=== PATIENT | male | born 1950 | race Caucasian/White ===

== ENCOUNTER → 2017-07-30 | Outpatient (CLI) | payer MEDICARE ==
[~2017-07-30] MED LIST: ALLO300T2 PO; ASPI81TA28 PO; ATEN-175 PO; GLC/500 PO; GLIP10TA3 PO; LTR510 PO; SIMV10TA2 PO; TORS1TAB41 PO
[2017-07-30 10:37] LABS: HEMATOCRIT 43.1 % (42-52); MEAN CORPUSCULAR HEMOGLOBIN 30.5 pg (25-34); MEAN CORPUSCULAR HGB CONC 33.9 g/dl (32-36); MEAN PLATELET VOLUME 11.1 fL (7.4-10.4); PLATELET COUNT 255 K/uL (130-400); RED BLOOD COUNT 4.79 M/uL (4.7-6.1); WHITE BLOOD COUNT 10.13 K/uL (4.8-10.8)
[2017-07-30 10:59] LABS: ALT/SGPT 58 U/L (12-78); AST/SGOT 32 U/L (15-37); BLOOD UREA NITROGEN 22 mg/dl (7-18); BUN/CREATININE RATIO 22.6 (10-20); CALCIUM 8.9 mg/dl (8.5-10.1); CARBON DIOXIDE 25 mmol/L (21-32); CHLORIDE 104 mmol/L (98-107); CREATININE 0.98 mg/dl (0.60-1.40); GLUCOSE 163 mg/dl (70-99); POTASSIUM 4.2 mmol/L (3.5-5.1); SODIUM 139 mmol/L (136-145); URIC ACID 6.2 mg/dl (2.6-7.2)
[2017-07-30 11:01] LABS: ALB/GLOB RATIO 0.9 (0.9-2); ALKALINE PHOSPHATASE 100 U/L (45-117); CHOLESTEROL 122 mg/dl (0-200); CHOLESTEROL/HDL RATIO 2.8; HDL CHOLESTEROL 44 mg/dl; LDL CHOLESTEROL CALCULATED 54 mg/dl; TRIGLYCERIDES 118 mg/dl (0-150); VERY LOW DENSITY LIPOPROT CALC 24 mg/dl
[2017-07-30 11:43] LABS: ESTIMATED AVERAGE GLUCOSE 169 mg/dl; HA1C FLAG Normal (Normal)
== END | disposition home or self-care (01) ==
LOC: C.LABBC 08:02
PROVIDERS: ATTEND Internal Medicine
DX: Z00.00 Encounter for general adult medical examination without abnormal findings (principal); I10 Essential (primary) hypertension; M10.9 Gout, unspecified; E11.9 Type 2 diabetes mellitus without complications; E78.5 Hyperlipidemia, unspecified; Z11.59 Encounter for screening for other viral diseases; R74.8 Abnormal levels of other serum enzymes

== ENCOUNTER 2022-02-25 20:52 | Observation (INO) ==
--- NOTE | 2022-02-25 21:03 | Emergency Department Note ---
History of Present Illness General Chief complaint: Stroke/CVA Symptoms Stated complaint: STOKE SYMPTOMS Source: patient and EMS Mode of arrival: ambulatory Limitations: no limitations History of Present Illness Patient is a 71-year-old male who had a recent intraparenchymal hemorrhage and was sent to [place] on [address], comes in after around 2:00 feeling like his left hand was tingly and he noticed he dropped something he said it was only his left hand it did not involve the face or the leg on that side. He is starting to feel better. There is no trauma or injury. He denies any chest pain or shortness of breath. He was on aspirin which I stopped. At [place] he did not require any surgical intervention. No change in vision no difficulty speaking or swallowing his blood sugar was checked on route and was Home Medications Medication Instructions Recorded Confirmed Type amlodipine 5 mg-benazepril 10 mg 1 cap PO QPM #90 cap 02/28/21 02/25/22 Rx capsule torsemide 10 mg tablet 10 mg PO QPM #90 tab 08/24/21 02/25/22 Rx simvastatin 10 mg tablet 10 mg PO PM #90 tab 11/14/21 02/25/22 Rx dulaglutide 1.5 mg/0.5 mL 1.5 mg SUBCUT .weekly #6 ml 11/23/21 02/25/22 Rx subcutaneous pen injector allopurinol 300 mg tablet 300 mg PO PM 12/20/21 02/25/22 History metformin 500 mg tablet 1,000 mg PO BID 12/20/21 02/25/22 History atenolol 50 mg tablet 50 mg PO DAILY 02/25/22 02/25/22 History glipizide 5 mg tablet 10 mg PO BID 02/25/22 02/25/22 History Allergies Allergy/AdvReac Type Severity Reaction Status Date / Time No Known Allergies Allergy Verified 02/25/22 22:13 Past Med/Surg History Medical History Cardiac murmur MILD Diabetes mellitus, type 2 NIDDM Gout Hyperlipidemia Hypertension Surgical History Achilles tendon tear (~1986) RT FOOT with repair History of colonoscopy History of tooth extraction (~1973) wisdom teeth 1973 Family History Father Family history of diabetes mellitus Myocardial infarction Hyperlipidemia Hypertension Grandmother (Paternal) Family history of diabetes mellitus Mother Family hx of colon cancer Breast cancer Colorectal cancer Brother Family hx of colon cancer Grandmother (Maternal) Family hx of colon cancer Uncle Colorectal cancer Denies family history of Ovarian cancer Prostate cancer Social History Smoking Status: Never smoker Second Hand Exposure: No; Hx Alcohol Use: Yes Alcohol type: wine and hard liquor Alcohol Intake Frequency: 2-3 x/Week Alcohol Intake Frequency Comment: 3-4 drinks per week Hx Substance Use: No Preferred Language: Barbadian Communication Ability: Effective Visual Impairment: Limited Hearing Ability: Normal Cover Stripper Required: No Beliefs That Will Affect Care: None marital status: Single Current Living Situation: Significant Other current occupational status: retired current occupation: used to work in IT Feels Safe at Home: Yes Childhood Exposure to Second-Hand Smoke: Yes (father) Diet Comment: Healthy caffeine: Yes (1 cup in AM) during the past year weight has: remained stable Dental Care, Regularly: Yes Physical Activity Frequency: 3-4 Times per Week Seatbelt Use: always Sunscreen Use: Yes Assistive Devices: Glasses Review of Systems A total of 10 systems reviewed and were otherwise negative Physical Exam Vital Signs Vital Signs - 24 hr 02/25/22 20:57 02/25/22 21:06 02/25/22 21:11 Temperature 36.7 C Temperature Source Oral Pulse Rate 47 L 47 L Pulse Rate from SpO2 Sensor Respiratory Rate 17 18 Respiratory Effort / Characteristics Non-Labored Spontaneous Respiratory Depth Normal Respiratory Pattern Regular Blood Pressure 153/74 H 153/74 H Blood Pressure Mean 100 100 Blood Pressure Position Semi-fowlers Pulse Oximetry 93 93 Oxygen Delivery Method Room Air Room Air Sepsis Recent Fever Within 48 Hours No Sepsis New/Unexplained Change in Mental Status N/A Sepsis Action Taken by Nursing No Action Required 02/25/22 21:15 02/25/22 21:28 02/25/22 21:30 Temperature Temperature Source Pulse Rate 47 L 47 L 48 L Pulse Rate from SpO2 Sensor 47 L 48 L Respiratory Rate 17 18 15 Respiratory Effort / Characteristics Respiratory Depth Respiratory Pattern Blood Pressure 144/82 H 149/74 H Blood Pressure Mean 102 99 Blood Pressure Position Pulse Oximetry 96 93 Oxygen Delivery Method Sepsis Recent Fever Within 48 Hours Sepsis New/Unexplained Change in Mental Status Sepsis Action Taken by Nursing 02/25/22 21:45 02/25/22 22:01 02/25/22 22:15 Temperature Temperature Source Pulse Rate 46 L 49 L 46 L Pulse Rate from SpO2 Sensor 47 L 46 L 46 L Respiratory Rate 16 20 17 Respiratory Effort / Characteristics Respiratory Depth Respiratory Pattern Blood Pressure 142/88 H 148/84 H 143/76 H Blood Pressure Mean 106 105 98 Blood Pressure Position Pulse Oximetry 92 94 95 Oxygen Delivery Method Sepsis Recent Fever Within 48 Hours Sepsis New/Unexplained Change in Mental Status Sepsis Action Taken by Nursing General: Well developed well nourished older male who appears alert on x3 and in no acute distress, breathing comfortably on room air. Normal speech HEENT: Normal cephalic atraumatic. Pupils are equal round and reactive to light. Extraocular movements are intact. Oropharynx is pink with moist mucous membranes. No swelling of the mouth lips or tongue. Neck: Supple with a midline trachea. No meningeal signs or stiffness, no JVD or bruits. No Stridor. Chest: Clear to auscultation bilaterally. No wheezes or rhonchi. No increased work of breathing. Heart: Regular rate and rhythm without murmurs or gallops. Abdomen: Soft nontender, nondistended without rebound guarding or rigidity. Extremities: No cyanosis clubbing or edema. No calf tenderness or assymetry Spine/Back. Non tender to palpation. No CVA tenderness Skin: Good turgor without rashes. Neurologic exam: Cranial nerves two through 12 are intact. Motor and sensation are intact and symmetrical throughout. He has some minimal weakness on his left hand compared to the right. Medical Decision Making Differential Diagnosis Intracranial hemorrhage, electrolyte or metabolic abnormality, CVA, vascular disease, infection, trauma Medical Records Attestation: I reviewed the patient's medical records. Home Medications Current Medication List: was personally reviewed by me Laboratory Data Attestation: I reviewed the patient's lab results. Result diagrams: 02/25/22 21:14 02/25/22 21:14 Lab Results 02/25/22 02/25/22 02/25/22 Range/Units 21:11 21:14 21:14 WBC 8.27 (4.8-10.8) K/uL RBC 4.20 L (4.7-6.1) M/uL Hgb 13.1 L (14.0-18.0) g/dL Hct 37.9 L (42-52) % MCV 90.2 (80-100) fL MCH 31.2 (25-34) pg MCHC 34.6 (32-36) g/dL RDW Std Deviation 44.7 (36.4-46.3) fL RDW Coeff of Jono 13.6 (11.5-14.5) % Plt Count 277 (130-400) K/uL MPV 10.9 H (7.4-10.4) fL Immature Gran % (Auto) 0.2 % Neut % (Auto) 53.1 % Lymph % (Auto) 30.7 % [place] % (Auto) 11.0 % Eos % (Auto) 4.4 % Baso % (Auto) 0.6 % Neut # (Auto) 4.39 (1.4-6.5) K/uL Lymph # (Auto) 2.54 (1.2-3.4) K/uL [place] # (Auto) 0.91 H (0.11-0.59) K/uL Eos # (Auto) 0.36 (0-0.5) K/uL Baso # (Auto) 0.05 (0-0.2) K/uL Immature Gran # (Auto) 0.02 (0.00-0.02) K/uL PT 10.3 (9.0-12.0) Seconds INR 1.0 (0.9-1.1) APTT 29.9 (21.0-31.0) Seconds PTT Ratio 1.1 Sodium (136-145) mmol/L Potassium (3.5-5.1) mmol/L Chloride (98-107) mmol/L Carbon Dioxide (21-32) mmol/L Anion Gap (3-11) BUN (6-23) mg/dl Creatinine (0.6-1.4) mg/dl Est Cr Clr Drug Dosing ml/min Est GFR ( Amer) ml/min Est GFR (Non-Af Amer) ml/min BUN/Creatinine Ratio (10-20) Glucose (70-99(Fasting)) mg/dl POC Glucose 178 H (70-99) mg/dl Calcium (8.5-10.1) mg/dl Magnesium (1.7-2.4) mg/dl Total Bilirubin (0.2-1.0) mg/dl AST (13-39) U/L ALT (7-52) U/L Alkaline Phosphatase (34-104) U/L Troponin I High Sens (0-20) pg/ml Total Protein (6.0-8.3) gm/dl Albumin (3.4-5.0) gm/dl Globulin (2.5-4.0) gm/dl Albumin/Globulin Ratio (0.9-2) SARS-CoV-2, RNA, NAAT (NEGATIVE) 02/25/22 02/25/22 Range/Units 21:14 21:58 WBC (4.8-10.8) K/uL RBC (4.7-6.1) M/uL Hgb (14.0-18.0) g/dL Hct (42-52) % MCV (80-100) fL MCH (25-34) pg MCHC (32-36) g/dL RDW Std Deviation (36.4-46.3) fL RDW Coeff of Jono (11.5-14.5) % Plt Count (130-400) K/uL MPV (7.4-10.4) fL Immature Gran % (Auto) % Neut % (Auto) % Lymph % (Auto) % [place] % (Auto) % Eos % (Auto) % Baso % (Auto) % Neut # (Auto) (1.4-6.5) K/uL Lymph # (Auto) (1.2-3.4) K/uL [place] # (Auto) (0.11-0.59) K/uL Eos # (Auto) (0-0.5) K/uL Baso # (Auto) (0-0.2) K/uL Immature Gran # (Auto) (0.00-0.02) K/uL PT (9.0-12.0) Seconds INR (0.9-1.1) APTT (21.0-31.0) Seconds PTT Ratio Sodium 137 (136-145) mmol/L Potassium 3.7 (3.5-5.1) mmol/L Chloride 103 (98-107) mmol/L Carbon Dioxide 25 (21-32) mmol/L Anion Gap 9 (3-11) BUN 23 (6-23) mg/dl Creatinine 1.20 (0.6-1.4) mg/dl Est Cr Clr Drug Dosing 55.8 ml/min Est GFR ( Amer) 70.1 ml/min Est GFR (Non-Af Amer) 60.5 ml/min BUN/Creatinine Ratio 19.2 (10-20) Glucose 178 H (70-99(Fasting)) mg/dl POC Glucose (70-99) mg/dl Calcium 9.2 (8.5-10.1) mg/dl Magnesium 1.8 (1.7-2.4) mg/dl Total Bilirubin 0.4 (0.2-1.0) mg/dl AST 15 (13-39) U/L ALT 19 (7-52) U/L Alkaline Phosphatase 75 (34-104) U/L Troponin I High Sens 6.1 (0-20) pg/ml Total Protein 6.8 (6.0-8.3) gm/dl Albumin 3.9 (3.4-5.0) gm/dl Globulin 2.9 (2.5-4.0) gm/dl Albumin/Globulin Ratio 1.3 (0.9-2) SARS-CoV-2, RNA, NAAT NEGATIVE (NEGATIVE) Imaging Data Attestation: I personally reviewed and interpreted this imaging study as follow s: My Impression: CT HeadI do not see any acute hemorrhage or mass effect Chest x-rayno acute infiltrate, failure, pneumothorax seen Radiologist's Impression: Head CT 02/25/22 20:57 CT head/brain wo con CLINICAL HISTORY: cva symptoms Technique: Contiguous axial CT images of the head were acquired from the base of the skull to the vertex without intravenous contrast administration. Images were viewed in brain, subdural and bone windows. Automated dose lowering techniques and/or adjustment according to patient size were utilized for this exam. Comparison: Comparison is made to CT head 02/14/2022 Findings: Areas of decreased attenuation are present in the periventricular and subcortical white matter bilaterally consistent with small vessel ischemic disease. Generalized cerebral atrophy with commensurate enlargement of the ventricles, sulci, and cisterns is also present. There is no acute intracranial hemorrhage or evidence of acute territorial infarction. No shift of the midline structures, mass effect, or extra-axial abnormalities are shown. Atherosclerotic calcifications are present in the intracranial segments of the internal carotid arteries. Previously noted hemorrhagic infarct demonstrates expected evolutionary changes with a focus of encephalomalacia. No new hemorrhage is seen. No evidence of new infarct. Imaged portions of the paranasal sinuses and mastoid air cells are clear. The orbits appear normal. There are no acute fractures of the calvaria or scalp swelling. Impression: No evidence of new hemorrhage or infarct. Expected evolutionary appearance of previous hemorrhage. ACT 112: Negative or not required by law. Electronically signed by: Attila Hu M.D. 02/25/2022 9:19 PM Chest X-Ray 02/25/22 20:58 XR chest 1V portable CLINICAL HISTORY: Stroke Like Symptoms TECHNIQUE: Single frontal radiograph of the chest was obtained. Comparison: None available at the time of this dictation. FINDINGS: No lines and tubes are seen. The cardiomediastinal silhouette is normal. Elevation of the right hemidiaphragm is seen. The lungs are clear. No evidence of pleural effusion or pneumothorax. IMPRESSION: No acute chest disease. ACT 112: Negative or not required by law. Electronically signed by: Attila Hu M.D. 02/25/2022 9:38 PM ECG Data Attestation: I personally reviewed and interpreted this ECG as follows: Indication: + weakness Rate (beats per minute): 46 Rhythm: + sinus bradycardia ECG Intervals/blocks: + Normal QRS, + Normal QT and + Normal NC ECG [place]: + Normal ECG ST segments: + Normal ST segments ECG Findings: no PACs or no PVCs Comparison ECG Date: from (02/14/22) Change: no significant change MDM Narrative This patient comes in as described above he had symptoms of left arm weakness with start around 2:00. he feels like is getting a little better he is mildly weak in the left hand/arm only he had a recent intracranial hemorrhage that was documented on 02/14/2022 I looked at the CAT scan report. Given this he is not going to be a thrombolytic candidate also based on the presentation time. The biggest concern I think is recurrence of hemorrhage and when I saw him we immediately took him to get a CAT scan. CAT scan does not show any acute hemorrhage or acute event this was read by the radiologist as well. EKG shows baseline sinus bradycardia. He has no signal electrolyte or metabolic abnormalities. His blood pressure has been adequately controlled here as well and does not seem to be acute factor. He seems to be doing well but I am concerned that he may have had another stroke or some ischemia extension. At this point there is no evident evidence of acute hemorrhage. This could also been seizure related. I do think he needs to be admitted/observed. Dr. Alaniz's team did see the patient in ER. Dr. Alaniz asked that I talk to the [place] neurologist as we may not have neurology coverage this weekend. I did talk to Dr. Siddiqui and he recommended getting an MRI and not giving him aspirin at present but if the MRI shows some new ischemia or extension and no acute hemorrhage he feels that a low-dose aspirin could be given. He also recommended to ensure that the patient is on Keppra 500 mg twice daily for seizure prophylaxis. Looking back through the chart it looks like he was on Keppra at one-point. I did relay the these recommendations to both the resident and Dr. Alaniz. The patient will be admitted for further neurologic work- up and monitoring. Continuous cardiac monitoring: Order was placed in EMR for continuous color television console monitor. Upon my interpretation patient with no to be in sinus bradycardia with a rate of 50 Impression & Plan Acute CVA (cerebrovascular accident), Left arm weakness, History of intracranial hemorrhage, Type 2 diabetes mellitus Discharge Plan Visit Data Chief Complaint: Stroke/CVA Symptoms Stated Complaint: STOKE SYMPTOMS ED Provider: Desmond Richards Discharge Problem: Acute CVA (cerebrovascular accident), Left arm weakness, History of intracranial hemorrhage, Type 2 diabetes mellitus Forms Stand Alone Forms: My [facility] [employer] Prescriptions Prescriptions: No Action amlodipine-benazepril 5-10 mg capsule 1 cap PO QPM Qty: 90 RF: 3 torsemide 10 mg tablet 10 mg PO QPM Qty: 90 RF: 3 simvastatin 10 mg tablet 10 mg PO PM Qty: 90 RF: 3 dulaglutide 1.5 mg/0.5 mL pen injector 1.5 mg subcut .weekly Qty: 6 RF: 3 metformin 500 mg tablet 1,000 mg PO BID RF: 0 allopurinol 300 mg tablet 300 mg PO PM RF: 0 atenolol 50 mg Tablet 50 mg PO DAILY RF: 0 glipizide 5 mg Tablet 10 mg PO BID RF: 0 Referrals Referrals: Hiren Jaeger MD [Primary Care Provider] - Discharge Problem: Type 2 diabetes mellitus Qualifiers: Diabetes mellitus terminal block assembler insulin use: without terminal block assembler use Diabetes mellitus complication status: without complication Qualified Code(s): E11.9 - Type 2 diabetes mellitus without complications
--- NOTE | 2022-02-25 21:22 | CT Scan Report ---
CT head/brain wo con CLINICAL HISTORY: cva symptoms Technique: Contiguous axial CT images of the head were acquired from the base of the skull to the delilah manfred without intravenous contrast administration. Images were viewed in brain, subdural and bone [facility]. Automated dose lowering techniques and/or adjustment according to patient size were utilized for this exam. Comparison: Comparison is made to CT head 02/14/2022 Findings: Areas of decreased attenuation are present in the periventricular and subcortical white matter bilate rally consistent with small vessel ischemic disease. Generalized cerebral atrophy with commensurate e nlargement of the ventricles, sulci, and cisterns is also present. There is no acute intracranial hem orrhage or evidence of acute territorial infarction. No shift of the midline structures, mass effect, or extra-axial abnormalities are shown. Atherosclerotic calcifications are present in the intracran ial segments of the internal carotid arteries. Previously noted hemorrhagic infarct demonstrates expe cted evolutionary changes with a focus of encephalomalacia. No new hemorrhage is seen. No evidence of new infarct. Imaged portions of the paranasal sinuses and mastoid air cells are clear. The orbits appear normal. There are no acute fractures of the calvaria or scalp swelling. Impression: No evidence of new hemorrhage or infarct. Expected evolutionary appearance of previous hemorrhage. ACT 112: Negative or not required by law. Electronically signed by: Attila Hu M.D. 02/25/2022 9:19 PM
[2022-02-25 21:27] LABS: Basophils # (auto) 0.05 K/uL (0-0.2); Basophils % (auto) 0.6 %; Eosinophils # (auto) 0.36 K/uL (0-0.5); Eosinophils % (auto) 4.4 %; Hematocrit (blood only) 37.9 % (42-52); Hemoglobin 13.1 g/dL (14.0-18.0); Immature Granulocytes # (auto) 0.02 K/uL (0.00-0.02); Immature Granulocytes % (auto) 0.2 %; Lymphocytes # (auto) 2.54 K/uL (1.2-3.4); Lymphocytes % (auto) 30.7 %; Mean Corpuscular Hemoglobin 31.2 pg (25-34); Mean Corpuscular Hgb Conc 34.6 g/dL (32-36); Mean Corpuscular Volume 90.2 fL (80-100); Mean Platelet Volume 10.9 fL (7.4-10.4); Monocytes # (auto) 0.91 K/uL (0.11-0.59); Neutrophils # (auto) 4.39 K/uL (1.4-6.5); Neutrophils % (auto) 53.1 %; Platelet Count 277 K/uL (130-400); RDW Coefficient of Variation 13.6 % (11.5-14.5); RDW Standard Deviation 44.7 fL (36.4-46.3); White Blood Count 8.27 K/uL (4.8-10.8)
--- NOTE | 2022-02-25 21:39 | XRay Report ---
XR chest 1V portable CLINICAL HISTORY: Stroke Like Symptoms TECHNIQUE: Single frontal radiograph of the chest was obtained. Comparison: None available at the time of this dictation. FINDINGS: No lines and tubes are seen. The cardiomediastinal silhouette is normal. Elevation of the right hemid iaphragm is seen. The lungs are clear. No evidence of pleural effusion or pneumothorax. IMPRESSION: No acute chest disease. ACT 112: Negative or not required by law. Electronically signed by: Attila Hu M.D. 02/25/2022 9:38 PM
[2022-02-25 21:42] LABS: Albumin Globulin Ratio 1.3 (0.9-2); Albumin Level 3.9 gm/dl (3.4-5.0); BUN Creatinine Ratio 19.2 (10-20); Bilirubin,Total 0.4 mg/dl (0.2-1.0); Calcium 9.2 mg/dl (8.5-10.1); Creatinine Clr Calc Pharmacy 55.8 ml/min; Est GFR (African American) 70.1 ml/min; Est GFR (Non-African American) 60.5 ml/min; Globulin 2.9 gm/dl (2.5-4.0); Magnesium 1.8 mg/dl (1.7-2.4); Partial Thromboplastin Ratio 1.1; Partial Thromboplastin Time 29.9 Seconds (21.0-31.0); Potassium 3.7 mmol/L (3.5-5.1); Prothrombin Time 10.3 Seconds (9.0-12.0); Total Protein 6.8 gm/dl (6.0-8.3)
[2022-02-25 21:49] LABS: Troponin I High Sensitivity 6.1 pg/ml (0-20)
--- NOTE | 2022-02-25 22:34 | History & Physical Report ---
Date of Service February 25, 2022 Attending addendum: I have physically seen this patient, have supervised the medical residents activities, and agree with the H&P unless as otherwise noted. Assessment and Plan: Left arm weakness/numbness/history of hemorrhagic CVA on 02/14/2022- Recent right temporal lobe/thalamus hemorrhagic CVA with expected evolution process noted on CT head today Order MRI brain to assess for possible new CVA due to new symptoms NPO Stroke without tPA order set Keppra 5 mg p.o. twice daily Will increase simvastatin from 10 mg to high-dose 40 mg Temporarily holding aspirin, per recommendations of [facility] stroke neurology, until MRI completed verified no other hemorrhage Diabetes mellitus- Hold Trulicity, glipizide and metformin Place on Accu-Cheks before meals and at bedtime with NovoLog coverage per scale Hypertension/permissive hypertension- Atenolol 50 mg daily and amlodipine/benazepril 5/10 1 daily. Hold was permissive hypertension guidelines Remaining orders and notations as noted Assessment & Plan (1) Left arm weakness: Plan: Dario Moses is a 71-year-old male with past medical history of DM 2, hyperlipidemia, hypertension, intraparenchymal hemorrhage on 02/14/2022 who presented due to new onset left hand weakness/numbness. Left hand weakness/numbness in the setting of recent right temporal intraparenchymal bleed CT head today showing No evidence of new hemorrhage or infarct. Expected evolutionary appearance of previous hemorrhage. MRI brain ordered N.p.o. until he clears dysphagia screening Neurochecks every 4 hours ED provider spoke with [facility] see note for detail As per [facility] Wilmer, Keppra 500 mg twice daily Hold aspirin Admit for observation to med telemetry Diabetes Hold home regimen SSI when not n.p.o. Hypertension Continue home amlodipinebenazepril, atenolol, torsemide Hyperlipidemia Continue home simvastatin .DVT prophylaxis: Holding chemoprophylaxis in the setting of recent intraparenchymal bleed Diet: N.p.o. until cleared dysphagia screen Dispo: Observation to med telemetry CODE STATUS: Full (2) History of intracranial hemorrhage: (3) Type 2 diabetes mellitus: (4) Hypertension: (5) Hyperlipidemia: History of Present Illness Primary Care Provider: Hiren Jaeger MD Dario Moses is a 71-year-old male with past medical history of DM 2, hyperlipidemia, hypertension, intraparenchymal hemorrhage on 02/14/2022 who presented due to new onset left hand weakness/numbness. Patient was seen in our ED on 02/14 and found to have a right temporal lobe hemorrhagic focus on CT image of the head. He was transferred to [facility] where he was under the care of neurosurgery. There was no indication for surgical intervention. MRI showed no underlying mass. He was discharged on a 7-day course of Keppra for seizure prophylaxis. He was discharged on amlodipine, lisinopril, and labetalol on discharge. Discharge summary did show aspirin under discharge medications, but hospital course i ndicating that aspirin should be held until follow-up. Today, patient presents with new onset left hand tingling and numbness. He also states that he had dropped some things that he was holding in his left hand. He denies any dizziness, vision changes, difficulty speaking, weakness of other extremities, nausea, vomiting, chest pain, palpitations, shortness of breath, abdominal pain, fever, chills. CT head today showing No evidence of new hemorrhage or infarct. Expected evolutionary appearance of previous hemorrhage. ED provider discussed case with Dr. Siddiqui of [facility], who recommended MRI, holding aspirin until acute hemorrhage/extension of previous hemorrhage ruled out, also recommended Keppra 500 mg twice daily for seizure prophylaxis. Allergies Allergy/AdvReac Type Severity Reaction Status Date / Time No Known Allergies Allergy Verified 02/25/22 22:13 Home Medications Medication Instructions Recorded Confirmed Type amlodipine 5 mg-benazepril 10 mg 1 cap PO QPM #90 cap 02/28/21 02/25/22 Rx capsule torsemide 10 mg tablet 10 mg PO QPM #90 tab 08/24/21 02/25/22 Rx simvastatin 10 mg tablet 10 mg PO PM #90 tab 11/14/21 02/25/22 Rx dulaglutide 1.5 mg/0.5 mL 1.5 mg SUBCUT .weekly #6 ml 11/23/21 02/25/22 Rx subcutaneous pen injector allopurinol 300 mg tablet 300 mg PO PM 12/20/21 02/25/22 History metformin 500 mg tablet 1,000 mg PO BID 12/20/21 02/25/22 History atenolol 50 mg tablet 50 mg PO DAILY 02/25/22 02/25/22 History glipizide 5 mg tablet 10 mg PO BID 02/25/22 02/25/22 History Past Med/Surg History Medical History Cardiac murmur MILD Diabetes mellitus, type 2 NIDDM Gout Hyperlipidemia Hypertension Surgical History Achilles tendon tear (~1986) RT FOOT with repair History of colonoscopy History of tooth extraction (~1973) wisdom teeth 1973 Family History Father Family history of diabetes mellitus Myocardial infarction Hyperlipidemia Hypertension Grandmother (Paternal) Family history of diabetes mellitus Mother Family hx of colon cancer Breast cancer Colorectal cancer Brother Family hx of colon cancer Grandmother (Maternal) Family hx of colon cancer Uncle Colorectal cancer Denies family history of Ovarian cancer Prostate cancer Social History Smoking Status: Never smoker Second Hand Exposure: No; Do You Dip or Chew Tobacco: No; Hx Alcohol Use: Yes Alcohol type: beer, wine and hard liquor Alcohol Intake Frequency: 2-3 x/Week Alcohol Intake Frequency Comment: 3-4 drinks per week Hx Substance Use: No Preferred Language: Croatian Communication Ability: Effective Visual Impairment: Limited Hearing Ability: Normal Automobile Brakes Bonder Required: No Beliefs That Will Affect Care: None marital status: Single Current Living Situation: Alone current occupational status: retired current occupation: used to work in IT Feels Safe at Home: Yes Safety Concerns: Feels Safe At This Time Childhood Exposure to Second-Hand Smoke: Yes (father) Diet Comment: Healthy caffeine: Yes (1 cup in AM) during the past year weight has: remained stable Dental Care, Regularly: Yes Physical Activity Frequency: 3-4 Times per Week Seatbelt Use: always Sunscreen Use: Yes Assistive Devices: None Review of Systems Review of Systems: All systems reviewed & are unremarkable except as noted in HPI & below Physical Exam Physical Exam: GENERAL: A&Ox3. NAD. HEENT: PERRL, EOMI. Moist mucous membranes. NECK: No JVD. No lymphadenopathy. CHEST/LUNGS: CTAB A/P. No crackles, wheezes, rales, rhonchi. HEART: RRR. No m/g/r. No carotid bruits. ABDOMEN: NT/ND, soft. BS+ x4 EXTREMITIES: No cyanosis, no clubbing, no edema SKIN: Warm and dry. No rashes or lesions. PSYCHIATRIC: Euthymic affect, no SI, no pressured speech, no hallucinations NEUROLOGIC: No FND. CN II-XII grossly intact. Slight left-handed weakness, reported diminished sensation to light touch as well. Results & Data Results & Data ([facility]) Vital Signs (Past 12 Hours) Vital Signs Temp Pulse Resp BP Pulse Ox 02/25/22 22:15 46 L 17 143/76 H 95 02/25/22 22:01 49 L 20 148/84 H 94 02/25/22 21:45 46 L 16 142/88 H 92 02/25/22 21:30 48 L 15 149/74 H 93 02/25/22 21:28 47 L 18 144/82 H 96 02/25/22 21:15 47 L 17 02/25/22 21:11 36.7 C 47 L 18 153/74 H 93 02/25/22 21:06 47 L 17 153/74 H 02/25/22 20:57 93 Resident Activity Tracking Resident Involvement: Resident Care Provided Care Provided: Adult Hospital Medicine (1) Type 2 diabetes mellitus Diabetes mellitus complication status: without complication 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
[2022-02-25] MEDS ORDERED: ACETAMINOPHEN 325 MG TAB PO STA (23:24)
[2022-02-26] MEDS ORDERED: ONDANSETRON INJ 2 MG/ML 2 ML VIAL IV PRN (02:41)
[2022-02-26] MEDS ORDERED: ACETAMINOPHEN 325 MG TAB PO STA (02:41)
[2022-02-26] MEDS ORDERED: PHARMACIST DISCHARGE MED REC CONSULT PRN (02:41)
[2022-02-26 06:14] LABS: Hematocrit (blood only) 39.5 % (42-52); Hemoglobin 13.3 g/dL (14.0-18.0); Mean Corpuscular Hgb Conc 33.7 g/dL (32-36); Mean Corpuscular Volume 89.2 fL (80-100); Mean Platelet Volume 11.1 fL (7.4-10.4); Platelet Count 277 K/uL (130-400); RDW Coefficient of Variation 13.7 % (11.5-14.5); RDW Standard Deviation 44.7 fL (36.4-46.3); Red Blood Count 4.43 M/uL (4.7-6.1); White Blood Count 8.42 K/uL (4.8-10.8)
[2022-02-26 06:29] LABS: BUN Creatinine Ratio 20.2 (10-20); Calcium 9.4 mg/dl (8.5-10.1); Chol HDL Ratio 2.8 (0-5); Creatinine Clr Calc Pharmacy 61.8 ml/min; Est GFR (African American) 88.4 ml/min; Est GFR (Non-African American) 76.3 ml/min; Potassium 3.8 mmol/L (3.5-5.1)
[2022-02-26 06:44] LABS: Basophils # (auto) 0.07 K/uL (0-0.2); Basophils % (auto) 0.8 %; Eosinophils # (auto) 0.45 K/uL (0-0.5); Eosinophils % (auto) 5.3 %; Immature Granulocytes # (auto) 0.02 K/uL (0.00-0.02); Immature Granulocytes % (auto) 0.2 %; Lymphocytes % (auto) 39.2 %; Monocytes # (auto) 0.91 K/uL (0.11-0.59); Monocytes % (auto) 10.8 %; Neutrophils # (auto) 3.67 K/uL (1.4-6.5); Neutrophils % (auto) 43.7 %
[2022-02-26] MEDS: ACETAMINOPHEN 325 MG TAB PO PRN ×2 (07:34→20:30)
[2022-02-26] MEDS ORDERED: metFORMIN HCL 500 MG TAB PO SCH (09:00)
[2022-02-26] MEDS: ATENOLOL 50 MG TABLET PO SCH (09:44)
[2022-02-26] MEDS ORDERED: GADOBUTROL 30ML VIAL IV ONE (11:03)
[2022-02-26] MEDS: levETIRAcetam 500 MG TAB PO SCH ×2 (11:37→20:01)
--- NOTE | 2022-02-26 12:24 | Electrocardiogram Report ---
Test Reason : Blood Pressure : / mmHG Vent. Rate : 046 BPM Atrial Rate : 046 BPM P-R Int : 196 ms QRS Dur : 088 ms QT Int : 442 ms P-R-T Axes : 021 074 072 degrees QTc Int : 386 ms Sinus bradycardia Otherwise normal ECG When compared with ECG of 14-FEB-2022 11:38, No significant change was found Confirmed by Hiren Rodriguez ([id number]) on 02/26/2022 12:24:18 PM Referred By: REFERRED SELF Confirmed By:Osorio Rodriguez
[2022-02-26] MEDS ORDERED: DEXTROSE 50% 50 ML SYRINGE IV PRN (18:15)
[2022-02-26] MEDS ORDERED: GLUCOSE 40% GEL 15 GM TUBE PO PRN (18:15)
[2022-02-26] MEDS ORDERED: CARBOHYDRATES FOR HYPOGLYCEMIA PO PRN (18:15)
[2022-02-26] MEDS ORDERED: GLUCOSE 10 TABS/TUBE PO PRN (18:15)
[2022-02-26] MEDS ORDERED: GLUCAGON FOR INJ 1 MG VIAL SQ PRN (18:15)
--- NOTE | 2022-02-26 18:19 | Hospitalist Progress Note ---
Date of Service February 26, 2022 Assessment & Plan (1) Left arm weakness: Plan: Dario Moses is a 71-year-old male with past medical history of DM 2, hyperlipidemia, hypertension, intraparenchymal hemorrhage on 02/14/2022 who presented due to new onset left hand weakness/numbness. Left hand weakness/numbness in the setting of recent right temporal intraparenchymal bleed Patient discharged from [facility] 10/08 following an intraparenchymal hemorrhage of the right temporal lobe. Was suspected to be a hypertensive. MRI was without underlying vascular abnormality or mass and he was otherwise neurologically intact for the duration of his stay. On discharge was recommended to continue 1 week of Keppra twice daily, discontinue aspirin, and to follow-up with neurology as outpatient for reevaluation and reimaging. Presented to the ER 02/25 with feelings of numbness and weakness of his left upper extremity which is new when which was not present with his prior stroke CT head on admission showing No evidence of new hemorrhage or infarct. Expected evolutionary appearance of previous hemorrhage. MRI brain completed, pending read evening 02/26 Case was discussed between ER and with neurology. Patient recommended to continue Keppra twice daily at this time (had stopped taking on 02/21/22 after completing 1 week). Do not use aspirin at this time, if no bleed/expansion and ischemic stroke is appreciated can consider the addition of aspirin per [facility] neuro. At bedside patient feels he is clinically improving with some residual deficits about half of what they were. Neurochecks every 4 hours Admit for observation to med telemetry If stroke eval negative may consider Keppra continuation and following clinically. Continued care overnight pending MRI results and clinical progr ession Diabetes Hold home regimen SSI - DM diet Hypertension Continue home amlodipinebenazepril - atenolol - torsemide Hyperlipidemia Continue home simvastatin .DVT prophylaxis: Holding chemoprophylaxis in the setting of recent intraparenchymal bleed Diet: DM, passed dysphagia screening Dispo: Observation to med telemetry CODE STATUS: Full (2) History of intracranial hemorrhage: (3) Type 2 diabetes mellitus: (4) Hypertension: (5) Hyperlipidemia: Admission and Anticipated Discharge Date Admission Date: February 26, 2022 Subjective Dario is seen at the bedside following MRI. He reports he feels well, does continue to have some qualitative numbness/tingling in his left hand and distal forearm which is new in the last 2 days, and which was not present with his prior hemorrhagic stroke. This is 20-50% improved from prior. His for stroke presented more with confusion and being dazed, he not have extremity weakness with his hemorrhagic stroke. Denies visual changes. Denies renato sea/vomiting/diarrhea/constipation. Denies any numbness/tingling/weakness in his legs. Denies facial numbness or tingling, does note that it was reported that he had a slight droop at the left corner of his mouth previously but otherwise has not had any asymmetry noticed Review of Systems Review of Systems: All systems reviewed & are unremarkable except as noted in Subjective Physical Exam Physical Exam: General: A&Ox3. NAD. Cooperative. HEENT: Atraumatic, normocephalic. Patient and hearing grossly intact Pulm: CTAB A&P. -wheezes, -rales, -rhonchi. Symmetrical chest rise. No increase in work of breathing. No respiratory distress. Cardiac: RRR, -mrg. Radial pulses intact and symmetrical. Abdominal: Nontender, nondistended, soft. BS present. CRANIAL NERVES: II: Pupils equal and reactive, no relative afferent pupillary defect, no VF cuts III, IV, : EOM intact, no gaze preference or deviation, no nystagmus. V: normal sensation in V1, V2, and V3 segments bilaterally VII: Very trace droop at left lip without nasolabial fold flattening or tone asymmetry, otherwise symmetrical. VIII: normal hearing to speech IX, X: normal palatal elevation, no uvular deviation XI: 5/5 head turn and 5/5 shoulder shrug bilaterally XII: midline tongue protrusion MOTOR: RUE: 5/5 Shoulder internal rotation, external rotation, flexion, extension, abduction, adduction 5/5 Elbow flexion/extension, wrist flexion/extension 5/5 housekeeping and laundry team leader strength, finger flexion/extension, interosseus LUE: 5/5 Shoulder internal rotation, external rotation, flexion, extension, abduction, adduction 5/5 Elbow flexion/extension, wrist flexion/extension 5/5 housekeeping and laundry team leader strength, finger flexion/extension, interosseus Patient does have full strength as noted above on left upper extremity testing, however with eyes closed does have substantial left arm drift to antigravity. RLE: 5/5 to hip flexion/extension, knee flexion/extension, ankle dorsiflexion/plantarflexion LLE: 5/5 to hip flexion/extension, knee flexion/extension, ankle dorsiflexion/plantarflexion REFLEXES: 2/4 patellar, bicepts, and achilles DTR without asymmetry. Bilateral flexor planter response, no Arevalo's, no clonus SENSORY: Normal to touch, pinprick, vibration, temp in upper right and bilateral lower extremities. Patient endorses a numbness feeling at rest which is asymmetrical in his left distal arm past the elbow, but sensation to soft touch on confrontation appears relatively equal between his arms Results & Data Results & Data ([facility]) Vital Signs (Past 12 Hours) Vital Signs Temp Pulse Pulse Resp BP Pulse Ox 02/26/22 15:06 47 L 02/26/22 11:40 36.8 C 45 L 18 124/66 95 02/26/22 07:39 36.7 C 45 L 18 157/82 H 93 02/26/22 07:13 44 L PG Care Time/CCT Total # of Minutes Spent Total Time Spent with Patient: Total time spent is greater than 50% in coordination of care (as documented) at patient's floor/unit and/or counseling patient: Coding Level of Care Code 16107 Subseq Obs Care Lvl 2 Diagnoses Left arm weakness R29.898 History of intracranial hemorrhage Z86.79 Type 2 diabetes mellitus E11.9 Diabetes mellitus senior care insulin use: without terminal operations supervisor use Diabetes mellitus complication status: without complication Hypertension I10 Hypertension type: essential hypertension Hyperlipidemia E78.2 Hyperlipidemia type: mixed hyperlipidemia (1) Type 2 diabetes mellitus Diabetes mellitus senior care insulin use: without senior care use Diabetes mellitus complication status: without complication Qualified Code(s): E11.9 - Type 2 diabetes mellitus without complications (2) Hypertension Hypertension type: essential hypertension Qualified Code(s): I10 - Essential (primary) hypertension (3) Hyperlipidemia Hyperlipidemia type: mixed hyperlipidemia Qualified Code(s): E78.2 - Mixed hyperlipidemia
--- NOTE | 2022-02-26 18:26 | Magnetic Resonance Report ---
MR brain wo/w con CLINICAL HISTORY: Left hand tingling. Evaluate for stroke.. COMPARISON STUDY: CT brain from 02/25/2022 TECHNIQUE: Multiplanar multisequence images of the brain were performed before and after Gadavist, 7 .3 mL of IV contrast. Diffusion weighted imaging and ADC mapping was also performed. FINDINGS: Extra-axial space: There is no evidence for a subdural hematoma, There are no extra-axial fluid glenn ections. Ventricles and cisterns: The ventricles are mildly dilated bilaterally. There is no evidence for mid line shift or mass effect. Parenchyma: On noncontrast images, there is evidence for a subacute hemorrhagic infarct within the ri ght temporal lobe.. It has a ringlike appearance due to its evolution. Acute diffusion abnormalities are noted on diffusion weighted imaging or ADC mapping. No new infarcts or bleeds are seen. There is normal meredith-white differentiation. The sulci and gyri appear normal without effacement. The midline structures are unremarkable. The posterior fossa structures appear normal. On postcontrast images, no increased enhancement is seen. No other enhancing lesions are identified. Osseous structures: The paranasal sinuses are well aerated. The mastoid air cells are well aerated. Soft tissues: No focal soft tissue abnormalities are identified. IMPRESSION: 1. Hemorrhagic infarct within the right temporal lobe is again seen and essentially unchanged. 2. No new infarcts or hemorrhages are identified. 3. No evidence for enhancing lesion. ACT 112: Negative or not required by law. Electronically signed by: Ron Carlson M.D. 02/26/2022 6:24 PM
[2022-02-26] MEDS: INSULIN ASPART PER UNIT SC SCH (20:26)
--- NOTE | 2022-02-26 20:51 | Billing Data ---
Date of Service February 26, 2022 Coding Level of Care Code INT OBSERVATION CARE 70M LVL 3
[2022-02-26] MEDS ORDERED: amLODIPine BESYLATE 5 MG TAB PO SCH (21:00)
[2022-02-26] MEDS ORDERED: allopurinoL 300 MG TAB PO SCH (21:00)
[2022-02-26] MEDS ORDERED: TORSEMIDE 10 MG TAB PO SCH (21:00)
[2022-02-26] MEDS ORDERED: ENALAPRIL MALEATE 10 MG TAB PO SCH (21:00)
[2022-02-27 07:27] LABS: Estimated Average Glucose 146 mg/dl; Hemoglobin A1C 6.7 % (4.5-5.6)
[2022-02-27 07:40] LABS: Basophils # (auto) 0.09 K/uL (0-0.2); Basophils % (auto) 1.1 %; Eosinophils # (auto) 0.73 K/uL (0-0.5); Eosinophils % (auto) 8.6 %; Hematocrit (blood only) 40.7 % (42-52); Hemoglobin 13.7 g/dL (14.0-18.0); Immature Granulocytes # (auto) 0.01 K/uL (0.00-0.02); Immature Granulocytes % (auto) 0.1 %; Lymphocytes # (auto) 2.61 K/uL (1.2-3.4); Lymphocytes % (auto) 30.9 %; Mean Corpuscular Hemoglobin 30.1 pg (25-34); Mean Corpuscular Hgb Conc 33.7 g/dL (32-36); Mean Corpuscular Volume 89.5 fL (80-100); Monocytes # (auto) 0.96 K/uL (0.11-0.59); Monocytes % (auto) 11.4 %; Neutrophils # (auto) 4.05 K/uL (1.4-6.5); Neutrophils % (auto) 47.9 %; Platelet Count 284 K/uL (130-400); RDW Coefficient of Variation 13.8 % (11.5-14.5); Red Blood Count 4.55 M/uL (4.7-6.1); White Blood Count 8.45 K/uL (4.8-10.8)
[2022-02-27 08:01] LABS: BUN Creatinine Ratio 14.3 (10-20); Calcium 9.6 mg/dl (8.5-10.1); Creatinine Clr Calc Pharmacy 54.6 ml/min; Est GFR (African American) 76.2 ml/min; Est GFR (Non-African American) 65.7 ml/min; Potassium 4.2 mmol/L (3.5-5.1)
[2022-02-27] MEDS: levETIRAcetam 500 MG TAB PO SCH (08:07)
[2022-02-27] MEDS: ATENOLOL 50 MG TABLET PO SCH (08:07)
[2022-02-27] MEDS: INSULIN ASPART PER UNIT SC SCH ×2 (08:11→12:10)
[2022-02-27] MEDS ORDERED: INSULIN GLARGINE SOLOSTAR 100 UNITS/ML 3 ML PEN SC SCH (09:00)
[2022-02-27] MEDS ORDERED: STROKE PATIENT DISCHARGE STA (10:48)
--- NOTE | 2022-02-27 10:59 | Discharge Summary ---
Date of Service February 27, 2022 Admission HPI Per Admitting Provider Dario Moses is a 71-year-old male with past medical history of DM 2, hyperlipidemia, hypertension, intraparenchymal hemorrhage on 02/14/2022 who presented due to new onset left hand weakness/numbness. Patient was seen in our ED on 02/14 and found to have a right temporal lobe hemorrhagic focus on CT image of the head. He was transferred to [facility] where he was under the care of neurosurgery. There was no indication for surgical intervention. MRI showed no underlying mass. He was discharged on a 7-day course of Keppra for seizure prophylaxis. He was discharged on amlodipine, lisinopril, and labetalol on discharge. Discharge summary did show aspirin under discharge medications, but hospital course indicating that aspirin should be held until follow-up. Today, patient presents with new onset left hand tingling and numbness. He also states that he had dropped some things that he was holding in his left hand. He denies any dizziness, vision changes, difficulty speaking, weakness of other extremities, nausea, vomiting, chest pain, palpitations, shortness of breath, abdominal pain, fever, chills. CT head today showing No evidence of new hemorrhage or infarct. Expected evolutionary appearance of previous hemorrhage. ED provider discussed case with Dr. Siddiqui of [facility], who recommended MRI, holding aspirin until acute hemorrhage/extension of previous hemorrhage ruled out, also recommended Keppra 500 mg twice daily for seizure prophylaxis. Principal Diagnosis L arm paresthesia History of intraparenchymal temporal hemorrhage, no evidence of expansion, new logic stroke, or new ischemic stroke during admission Discharge Exam General: A&Ox3. NAD. Cooperative. HEENT: Atraumatic, normocephalic. Patient and hearing grossly intact Pulm: CTAB A&P. -wheezes, -rales, -rhonchi. Symmetrical chest rise. No increase in work of breathing. No respiratory distress. Cardiac: RRR, -mrg. Radial pulses intact and symmetrical. Abdominal: Nontender, nondistended, soft. BS present. CRANIAL NERVES: II: Pupils equal and reactive, no relative afferent pupillary defect, no VF cuts III, IV, : EOM intact, no gaze preference or deviation, no nystagmus. V: normal sensation in V1, V2, and V3 segments bilaterally VII: Continues with very trace droop at left lip without nasolabial fold flattening or tone asymmetry, otherwise symmetrical. VIII: normal hearing to speech IX, X: normal palatal elevation, no uvular deviation XI: 5/5 head turn and 5/5 shoulder shrug bilaterally XII: midline tongue protrusion MOTOR: RUE: 5/5 flexio 5/5 Elbow flexion/extension 5/5 client service supervisor strength LUE: 5/5 Shoulder internal rotation 5/5 Elbow flexion/extension 5/5 client service supervisor strength Patient does have full strength as noted above on left upper extremity testing, with eyes closed +left arm drift to antigravity. SENSORY: Normal to touch, pinprick, vibration, temp in upper right and bilateral lower extremities. Patient endorses a numbness feeling at rest which is asymmetrical in his left distal arm past the elbow, but sensation to soft touch on confrontation appears relatively equal between his arms. 80% improved qualitatativly per pt compared to admisison at time of discharge Discharge Data Allergies Allergy/AdvReac Type Severity Reaction Status Date / Time No Known Allergies Allergy Verified 02/25/22 22:13 Ordered Studies 02/25/22 20:57 CT head/brain wo con Stat 02/26/22 02:41 MR brain wo/w con Routine Hospital Course (1) Left arm weakness: Dario Moses is a 71-year-old male with past medical history of DM 2, hyperlipidemia, hypertension, intraparenchymal hemorrhage on 02/14/2022 who presented due to new onset left hand weakness/numbness. He did not show evidence of new stroke or hemorrhagic expansion on CT or MRI follow-up. Case was discussed with [facility] and neurology in-house. We will continue Keppra for an additional 2 weeks with outpatient follow-up. Aspirin was deferred due to risk of bleeding and no observed ischemic stroke, simvastatin was not dose increased or changed due to low LDL and risk of bleeding with over suppression. Patient was 80% improved and only with some qualitative sensory change distal to the elbow at time of discharge. He did not have any neck pain or discomfort or abnormal extremity reflexes during admission. To do as outpatient: 1. Follow-up with PCP and neurology as outpatient Left hand weakness/numbness in the setting of recent right temporal intraparenchymal bleed Patient discharged from [facility] 10/08 following an intraparenchymal hemorrhage of the right temporal lobe. Was suspected to be a hypertensive. MRI was without underlying vascular abnormality or mass and he was otherwise neurologically intact for the duration of his stay. On discharge was recommended to continue 1 week of Keppra twice daily, discontinue aspirin, and to follow-up with neurology as outpatient for reevaluation and reimaging. Presented to the ER 02/25 with feelings of numbness and weakness of his left upper extremity which is new when which was not present with his prior stroke CT head on admission showing No evidence of new hemorrhage or infarct. Expected evolutionary appearance of previous hemorrhage. MRI brain completed. No expansion of old hemorrhagic area, no evidence of new stroke/new ischemic stroke Case was discussed between ER and with [facility] neurology. Patient recommended to continue Keppra twice daily at this time (had stopped taking on 02/21/22 after completing 1 week). Do not use aspirin at this time, if no bleed/expansion and ischemic stroke is appreciated can consider the addition of aspirin per [facility] neuro. At time of discharge patient feels 80% improved Continued on Keppra empirically with follow-up to outpatient neurology, low suspicion for seizure etiology but per discussion with neuro low risk of harm we will continue until follow-up Aspirin deferred due to story of brain bleed and increased risk with no ischemic stroke appreciated on MRI Continue simvastatin 10 mg at discharge. Increase to moderate to high potency deferred given patient's low LDL of 46 at baseline and increased risk of bleeding with over suppression Diabetes SSI while inpatient, home medications resumed. Good control A1c less than 7 during admission Hypertension Continue home amlodipinebenazepril, atenolol, torsemide Adequate blood pressure control during admission Hyperlipidemia Continue home simvastatin as noted (2) History of intracranial hemorrhage: (3) Type 2 diabetes mellitus: (4) Hypertension: (5) Hyperlipidemia: Total Time Total Time Spent Total Time Spent (In Minutes): Time spend day of discharge 35 minutes including direct patient care, documentation, review of labs and images, and coordination of care. Discharge Plan Discharge Items Patient Disposition: Home - Home Health Services Reason For Visit: STROKE R/O, L HAND WEAKNESS Discharge Diagnosis: Left hand paresthesia History of hemorrhagic intraparenchymal hemorrhage, no acute expansion or new ischemic stroke Activity: As commented below Non-emergency contact: Primary Care Provider and Neurologist Call non-emergency contact if: you have any medication questions, your symptoms worsen, your pain is not controlled and your pain is worsening Follow-up/Referrals: Hiren Jaeger MD [Primary Care Provider] - Diet: Carb Consistent or DM2 Addtl Attending Provider Instructions: You are seen in the hospital for left arm sensation change concerning for strokelike paresthesias. A CT scan did not show any expansion or worsening of your prior brain bleed, or evidence of new stroke. A follow-up MRI was performed. This did not show any evidence of new stroke or expansion of your old bleed area. Your case was reviewed with neurology. Adding aspirin to your medications was not recommended at this time based on risk/benefits analysis. It was recommended that you continue Keppra for another 1 to 2 weeks, and discuss this further with neurology as an outpatient. Your statin dose was not changed as you are LDL (bad cholesterol) is relatively low, and causing this to be too low can increase risk of bleeding. You are being discharged home with home health services and physical therapy. And appointments being made for you with your primary care physician, you should be seen within 1 week. Please also call your neurologist and have an appointment made for follow-up. Recommendations for how long to continue Keppra for should be made based on your progression and outpatient provider discussions. If you develop any new or worsening symptoms including fever, chills, sweats, chest pain, chest pressure, difficulty breathing, uncontrolled nausea/vomiting, rash, wheezing, passing out or nearly passing out, bleeding, black/bloody bowel movements, or other new or concerning symptoms please call your primary care physician, or call 911 for re-evaluation in the emergency department if you are very concerned. Pending Studies at Discharge: No Stand-Alone Forms: My [facility] [employer], Smoking Cessation Medications and DC Order Prescriptions: New levetiracetam [Keppra] 500 mg Tablet 500 mg PO BID 14 Days Qty: 28 RF: 1 Continued amlodipine-benazepril 5-10 mg capsule 1 cap PO QPM Qty: 90 RF: 3 torsemide 10 mg tablet 10 mg PO QPM Qty: 90 RF: 3 simvastatin 10 mg tablet 10 mg PO PM Qty: 90 RF: 3 dulaglutide 1.5 mg/0.5 mL pen injector 1.5 mg subcut .weekly Qty: 6 RF: 3 metformin 500 mg tablet 1,000 mg PO BID RF: 0 allopurinol 300 mg tablet 300 mg PO PM RF: 0 atenolol 50 mg Tablet 50 mg PO DAILY RF: 0 glipizide 5 mg Tablet 10 mg PO BID RF: 0 Discharge Orders: Discharge Order (Routine); Ordered 02/27/22 Ordered By: Tino Zamudio/Other Patient Handouts: Risk Factors for Stroke, Arm Care After a Stroke Admission Data Admit Date/Time: 02/26/22 01:08 Attending Provider: Tino Justice Admit Provider: Anmol Small Primary Care Provider: Hiren Jaeger Other Providers: [facility],Home Healthcare Other Interventions: Discharge Summary Assessment (RN) Last Done: 02/27/22 10:41 Coding Level of Care Code D/C DAY MANAGEMENT >30 MINS Diagnoses Left arm weakness R29.898 History of intracranial hemorrhage Z86.79 Type 2 diabetes mellitus E11.9 Diabetes mellitus care home insulin use: without predatory animal exterminator use Diabetes mellitus complication status: without complication Hypertension I10 Hypertension type: essential hypertension Hyperlipidemia E78.2 Hyperlipidemia type: mixed hyperlipidemia
== END 2022-02-27 12:54 | disposition home health service (06) ==
LOC: 2N 20:52 → ED 20:52 → SUATTDRO 02-26 01:08 → 2N 02-26 02:34